=== PATIENT | female | born 1975 | race Caucasian/White ===

== ENCOUNTER 2024-04-05 15:09 | Emergency (ER) | payer OTHER ==
[2024-04-05 15:18] VITALS: BP 108/67; PULSE 67; RESP 20; TEMP 98.5
--- NOTE | 2024-04-05 16:01 | ED ---
Skin/Abscess/FB HPI - General Chief complaint: Skin/Abscess/Foreign Body Stated complaint: bug bite on shoulder Time Seen by Provider: 04/05/24 15:49 Source: patient, RN notes reviewed Mode of arrival: ambulatory Limitations: no limitations - History of Present Illness Initial comments: This is a 49-year-old female who presents to the emergency department for concerns of a bug bite. States that over the last week she has been dealing with bug bites to the left shoulder. When she woke up this morning she noticed an additional one on the left shoulder that had redness starting to spread down the arm. Denies any pain or fever/chills associated with this, but states that it is itchy. Unsure what she may have been bit with. Not taking any medication or using any creams. - Related Data Previous Rx's Medication Instructions Recorded Triamcinolone 0.1% Cream [Kenalog 1 applicatio TOPICAL QID PRN #80 gm 04/05/24 0.1% Cream] cefUROXime axetiL [Ceftin] 500 mg PO BID 7 Days #14 tab 04/05/24 predniSONE 50 mg PO DAILY 4 Days #4 tab 04/05/24 Allergies Allergy/AdvReac Type Severity Reaction Status Date / Time No Known Allergies Allergy Verified 04/05/24 15:14 Review of Systems ROS Statement: Those systems with pertinent positive or pertinent negative responses have been documented in the HPI. ROS Other: All systems not noted in ROS Statement are negative. Past Medical History Past Medical History: No Reported History History of Any Multi-Drug Resistant Organisms: None Reported Past Surgical History: No Surgical Hx Reported Past Psychological History: No Psychological Hx Reported Smoking Status: Never smoker Past Alcohol Use History: Occasional Past Drug Use History: None Reported General Exam Limitations: no limitations General appearance: alert, in no apparent distress Head exam: Present: atraumatic, normocephalic, normal inspection Respiratory exam: Present: normal lung sounds bilaterally. Absent: respiratory distress, wheezes, rales, rhonchi, stridor Cardiovascular Exam: Present: regular rate, normal rhythm, normal heart sounds. Absent: systolic murmur, diastolic murmur, rubs, gallop, clicks Extremities exam: Present: other (Raised erythematous lesion to the left shoulder with some erythema tracking near the axilla. No drainage or tenderness.) Neurological exam: Present: alert, oriented X3, CN II-XII intact Psychiatric exam: Present: normal affect, normal mood Course Vital Signs 04/05/24 15:12 Temperature 98.5 F Pulse Rate 67 Respiratory 20 Rate Blood Pressure 108/67 O2 Sat by Pulse 99 Oximetry Medical Decision Making - Medical Decision Making This is a 49 year old female who presents to the emergency department for concerns of a bug bite on the shoulder. Was pt. sent in by a medical professional or institution? @ -No Did you speak to anyone other than the patient for history? @ -No Did you review nursing and triage notes? @ -Yes, and I agree, it is accurate with regards to the patient's symptoms. Were old charts reviewed? @ -No Differential Diagnosis? @ -Differential Insect Bite: Abscess, cellulitis, burn, insect bite, this is not meant to be an all-inclusive list. EKG interpreted by me (3pts min.)? @ -Not obtained X-rays interpreted by me (1pt min.)? @ -Not obtained CT interpreted by me (1pt min.)? @ -Not obtained U/S interpreted by me (1pt. min.)? @ -Not obtained What testing was considered but not performed? (CT, X-rays, U/S, labs)? Why? @ -None What meds were considered but not given? Why? @ -None Did you discuss the management of the patient with other professionals? @ -No Did you reconcile home meds? @ -No Was smoking cessation discussed for >3mins.? @ -No Was critical care preformed (if so, how long)? @ -No Were there social determinants of health that impacted care today? How? (Homelessness, low income, unemployed, alcoholism, drug addiction, transportation, low edu. Level, literacy, decrease access to med. care, shelter, rehab)? @ -No Was there de-escalation of care discussed even if they declined? (Discuss DNR or withdrawal of care, Hospice)? @ -No What co-morbidities impacted this encounter? (DM, HTN, Smoking, COPD, CAD, Cancer, CVA, Hep., AIDS, mental health diagnosis, sleep apnea, morbid obesity)? @ -None Was patient admitted / discharged? @ -Discharged. Physical examination suggestive of an allergic reaction to an insect bite. She did have some erythema tracking from this, but no tenderness. Discussed the possibility of a developing cellulitis versus allergic reaction, and we will plan to treat the patient for both possibilities. Prescription for cefuroxime, prednisone, and triamcinolone cream provided with dosing instructions reviewed. Advised [id number] antihistamines and famotidine for further management and follow-up with her primary care provider. Undiagnosed new problem with uncertain prognosis? @ -None Drug Therapy requiring intensive monitoring for toxicity (Heparin, Nitro, Insulin, Cardizem)? @ -None Were any procedures done? @ -None Diagnosis/symptom? @ -Allergic reaction to insect bite Acute, or Chronic, or Acute on Chronic? @ -Acute Uncomplicated (without systemic symptoms) or Complicated (systemic symptoms)? @ -Uncomplicated Side effects of treatment? @ -None Exacerbation, Progression, or Severe Exacerbation] @ -Not applicable Poses a threat to life or bodily function? @ -No Return precautions reviewed in depth, the patient is instructed to return to the emergency department with any new, worsening, or concerning symptoms. Patient verbalized understanding. This case was discussed in detail with the attending ED physician, Dr. Moralez. Presentation, findings, and treatment plan discussed in detail as well. Disposition Clinical Impression: Allergic reaction to insect bite Disposition: HOME SELF-CARE Instructions (If sedation given, give patient instructions): Insect Bite or Sting (ED), General Allergic Reaction (ED) Additional Instructions: Return to the emergency department with any new, worsening, or concerning symptoms. Take the antibiotic as prescribed for 7 days. Take the prednisone daily for 4 days with your first dose beginning tomorrow, as you received a steroid in the emergency department today. Apply the triamcinolone cream up to 4 times daily. You can also take an [id number] antihistamine such as Benadryl along with famotidine for further management of symptoms. Follow up with your primary care provider in 1-2 days. Prescriptions: cefUROXime axetiL [Ceftin] 500 mg PO BID 7 Days #14 tab Triamcinolone 0.1% Cream [Kenalog 0.1% Cream] 1 applicatio TOPICAL QID PRN #80 gm PRN Reason: Itching predniSONE 50 mg PO DAILY 4 Days #4 tab Is patient prescribed a controlled substance at d/c from ED?: No Referrals: Nonstaff,Physician [Primary Care Provider] - 1-2 days Time of Disposition: 16:01
[2024-04-05] MEDS: DEXAMETHASONE SOD PHOSPHATE 10 MG/ML 1 ML VIAL IM STA (16:28)
[2024-04-05] MEDS: predniSONE 50 MG TAB PO STA (16:28)
[2024-04-05] MEDS: cefTRIAXone 1,000 MG VIAL (IM USE) IM STA (16:29)
[2024-04-05] MEDS: TRIAMCINOLONE 0.1% CREAM 80 GM TUBE TOPICAL STA (16:30)
== END 2024-04-05 16:45 | disposition home or self-care (01) ==
LOC: EC 15:09
DX: S41.052A Open bite of left shoulder, initial encounter (principal); W57.XXXA Bitten or stung by nonvenomous insect and other nonvenomous arthropods, initial encounter
CPT/HCPCS: 99283; 96372; J0696; J7512